=== PATIENT | male | born 2000 | race Caucasian/White ===

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

== ENCOUNTER 2023-09-09 04:05 | Emergency (ER) | payer OTHER, SELFPAY ==
[2023-09-09] VITALS (9 sets, daily range): BP systolic 118–130; BP diastolic 63–68; PULSE 62–108; RESP 14–18; TEMP 36.3–37.1; O2SAT 96–100; BMI 32.6
--- NOTE | 2023-09-09 04:31 | MHC.EDTECH ---
Patient change into behavioral hospital attire All belongings ED pod Locker 4 Plan of care ongoing
--- NOTE | 2023-09-09 04:35 | ECG_ITS ---
Test Reason : ETOH Blood Pressure : / mmHG Vent. Rate : 092 BPM Atrial Rate : 092 BPM P-R Int : 162 ms QRS Dur : 102 ms QT Int : 350 ms P-R-T Axes : 037 035 022 degrees QTc Int : 432 ms Normal sinus rhythm Nonspecific T wave abnormality Abnormal ECG No previous ECGs available Referred By: Generic ED Physician Electronically Signed By:TABITHA GRAHAM MD
[2023-09-09 04:54] LABS: MANUAL DIFF FLAG NO
[2023-09-09 04:55] LABS: Basophils Percent Auto 0.4 % (0-2); Eosinophils Absolute Auto 0.1 X10*3/uL (0.0-0.4); Eosinophils Percent Auto 1.2 % (0-4); Hematocrit 46.7 % (42.0-52.0); Hemoglobin 16.4 g/dl (14.0-18.0); Imm Gran Abs Auto 0.04 X10*3/uL (0.00-0.03); Imm Gran Pct Auto 0.4 % (0.0-0.4); Lymphocytes Absolute Auto 3.9 X10*3/uL (1.2-4.9); Lymphocytes Percent Auto 35.4 % (20-40); Mean Corpuscular HGB Conc 35.1 g/dl (31.0-36.0); Mean Corpuscular Hemoglobin 29.6 pg (27.0-33.0); Mean Corpuscular Volume 84.3 fL (80.0-98.0); Mean Platelet Volume 9.1 fL (9.4-12.4); Monocytes Absolute Auto 0.7 X10*3/uL (0.1-1.2); Monocytes Percent Auto 6.4 % (2-11); Neutrophils Absolute Auto 6.1 x10*3/uL (2.0-8.3); Neutrophils Percent Auto 56.2 % (45-73); Platelet Count 327 X10*3/uL (160-400); Red Blood Count 5.54 X10*6/uL (4.60-5.80); Red Cell Distribution Width 13.4 % (11.0-16.0); White Blood Count 10.9 X10*3/uL (4.8-10.8)
--- NOTE | 2023-09-09 05:51 | MHC.EDTECH ---
Late Entry,this tech took over care of patient at 0500AM, patient came out of the pod placed on the coach tour driver,vitals taken, Patient is agitated security present at bedside.
[2023-09-09 05:54] LABS: Appearance Urine Clear; Color Urine Yellow; Glucose Urine UA Negative (Negative); Leukocyte Esterase Urine Negative (Negative); Nitrite Urine Negative (Negative); PH 6.5 (5.0-9.0); Urine Blood Negative (Negative); Urine Ketones Negative (Negative); Urine Protein Negative (Neg-Trace)
--- NOTE | 2023-09-09 05:54 | MHC.EDTECH ---
Patient was given an ice cream,patient agitated and swearing, re directable ambulated to bathroom with a steady gait,security present,urine sample obtained and sent to lab.
--- NOTE | 2023-09-09 05:55 | PC.NURSE ---
Poison control contacted- supportive care recommended as PT is a/o, and drug use likely habitual. Recommend checking Tylenol and salicylates levels to ensure w/in normal range, and care team consult due to SI
--- NOTE | 2023-09-09 06:16 | MHC.EDTECH ---
Patient is swearing, agitated,and throwing his blankets stated I want to pulling millicent off Security at bedside patient is redirectable
[2023-09-09] MEDS: Nicotine Polacrilex 2 MG GUM BUCCAL ×2 (06:31→16:31)
--- NOTE | 2023-09-09 07:09 | ED.PSYCH ---
HPI - Psych General Chief Complaint: ETOH/Substance Use Stated Complaint: drug use Time Seen by Provider: 09/09/23 07:04 Source: patient and EMS Mode of arrival: EMS Limitations: no limitations History of Present Illness HPI Narrative: 23-year-old male presents emergency department from home. Patient states he relapsed on alcohol and wants to kill himself patient was placed in the Section by police he had been drinking at midnight and also used oxycodone and Xanax. Patient denies SI and is just sitting he wants to go home patient denies any complaints at this time. MD complaint: suicidal ideation, feels depressed and anxiety Related Data Home Medications ?Medication ?Instructions ?Recorded ?Confirmed No Known Home Meds 09/09/23 09/09/23 Allergies Allergy/AdvReac Type Severity Reaction Status Date / Time fluoxetine [From PROZAC] Allergy Intermediate HIVES Verified 09/09/23 05:41 citalopram [From Celexa] Allergy Hives Verified 09/09/23 04:34 dapoxetine Allergy Hives Verified 09/09/23 05:41 escitalopram [From Lexapro] Allergy Hives Verified 09/09/23 04:34 fluvoxamine Allergy Hives Verified 09/09/23 05:41 paroxetine Allergy Hives Verified 09/09/23 05:41 sertraline Allergy Hives Verified 09/09/23 05:41 Review of Systems Review of Systems: Review of systems: General: Patient denies any fever chills recent illness or falls Musculoskeletal: Denies back pain or body aches or other injuries HEENT: denies headache, runny nose, ear pain Respiratory: denies shortness of breath, cough Cardiovascular: no chest pain or palpitations : denies dysuria, frequency Abdomen: no nausea vomiting denies abdominal pain Extremities: no swelling, no pain Skin: no diaphoresis Yes all other systems are reviewed and are negative [facility] Social History Social History (System 03/20/23 @ 12:58 by Alethea Barajas) Alcohol intake: current Alcohol intake frequency: 3 or more drinks per day Patient Tobacco Use Status: Tobacco use Unknown Use of substances other than those prescribed or required for medical reasons: Yes Substance Use Type: Opiates, Painkillers and Prescription Drugs Advance Directives: No Advance Directives Information Provided: No Physical Exam Vital Signs: Vital Signs: Last Vital Signs Temp 97.4 F 04/07/24 06:22 Pulse 98 09/09/23 06:22 Resp 16 09/09/23 06:22 BP 118/63 09/09/23 06:22 Pulse Ox 96 09/09/23 06:22 O2 Del Method Room Air 09/09/23 06:22 BMI result Body Mass Index 32.6 General: Well-appearing well-nourished in no signs of distress somnolent but arousable HEENT: Normocephalic atraumatic Neck: No signs of JVD, no masses no tenderness or lymphadenopathy Cardiovascular: Regular rate and rhythm Respiratory: Clear to auscultation bilaterally Abdomen: Soft nontender no masses Extremities: Normal pedal pulses no signs of edema Skin: Dry warm no rashes Back: No tenderness full ROM Course Reevaluation(s) Reevaluation #1: Patient cleared early in the day did get agitated but unfortunately we don't have any providers to access the patient today. Will stay here for evaluation in the morning. Medications Administered Discontinued Medications Generic Name Dose Route Start Last Admin Trade Name Shahram PRN Reason Stop Dose Admin Nicotine Polacrilex 2 mg 09/09/23 06:11 09/09/23 06:31 Nicotine Polacrilex 2 Mg Gum BUCCAL 09/09/23 06:12 2 mg ONCE ONE Administration Quetiapine Fumarate 100 mg 09/09/23 07:51 09/09/23 07:55 Quetiapine Fumarate 100 Mg Tablet PO 09/09/23 07:52 100 mg ONCE ONE Administration Medical Decision Making Medical Decision Making [facility] Narrative: I will watch here till he is clinically sober waiting for the alkaline come down Differential Diagnosis Differential Diagnoses: The differential diagnosis associated with the presentation includes Drug overdose suicide ideation Admission/Observation Consideration of admission/observation: Escalation of care including admission/observation considered Consult Healthcare Provider Management of the patient was discussed with: Behavioral Health Provider Lab Data [facility] Lab Attestation statement: I reviewed the patient's lab results. 09/09/23 04:46 09/09/23 04:46 Labs: Lab Results 09/09/23 09/09/23 Range/Units 04:46 05:46 WBC 10.9 H (4.8-10.8) X10*3/uL RBC 5.54 (4.60-5.80) X10*6/uL Hgb 16.4 (14.0-18.0) g/dl Hct 46.7 (42.0-52.0) % MCV 84.3 (80.0-98.0) fL MCH 29.6 (27.0-33.0) pg MCHC 35.1 (31.0-36.0) g/dl RDW 13.4 (11.0-16.0) % Plt Count 327 (160-400) X10*3/uL MPV 9.1 L (9.4-12.4) fL Immature Gran % (Auto) 0.4 (0.0-0.4) % Neut % (Auto) 56.2 (45-73) % Lymph % (Auto) 35.4 (20-40) % [place] % (Auto) 6.4 (2-11) % Eos % (Auto) 1.2 (0-4) % Baso % (Auto) 0.4 (0-2) % Lymph # (Auto) 3.9 (1.2-4.9) X10*3/uL [place] # (Auto) 0.7 (0.1-1.2) X10*3/uL Eos # (Auto) 0.1 (0.0-0.4) X10*3/uL Baso # (Auto) 0.0 (0.0-0.2) X10*3/uL Abs Immat Gran (auto) 0.04 H (0.00-0.03) X10*3/uL Absolute Neuts (auto) 6.1 (2.0-8.3) x10*3/uL Absolute Nucleated RBC 0.000 (0.0-0.012) X10*3/uL Nucleated RBC % (auto) 0.0 (0.0-0.2) /100WBC Sodium 144 (135-145) mmol/L Potassium 4.1 (3.3-5.1) mmol/L Chloride 106 (96-108) mmol/L Carbon Dioxide 18 L (22-29) mmol/L Anion Gap 20 (12-20) BUN 6 L (9-16) mg/dL Creatinine 0.60 (0.5-1.4) mg/dL Estim Creat Clear Calc 248.4 Estimated GFR > 60 Random Glucose 89 (60-115) mg/dL Calcium 9.7 D (8.4-10.2) mg/dL Total Bilirubin 0.5 (0.0-1.0) mg/dL AST 23 (5-37) U/L ALT 29 (0-40) U/L Alkaline Phosphatase 82 (39-117) U/L Total Protein 7.6 (6.5-8.0) g/dL Albumin 4.9 (3.5-5.0) g/dL Urine Color Yellow Urine Appearance Clear Urine pH 6.5 (5.0-9.0) Ur Specific [place] 1.010 (1.005-1.025) Urine Protein Negative (Neg-Trace) mg/dL Urine Glucose (UA) Negative (Negative) mg/dL Urine Ketones Negative (Negative) mg/dL Urine Blood Negative (Negative) Urine Nitrite Negative (Negative) Ur Leukocyte Esterase Negative (Negative) Salicylates < 5.0 L (15-30) mg/dL Urine Opiates Screen NOT DETECTED (Not Detect) Urine Fentanyl Screen Not Detected (Not Detect) Acetaminophen < 5 (<30) mcg/mL Ur Barbiturates Screen NOT DETECTED (Not Detect) Ur Phencyclidine Scrn NOT DETECTED (Not Detect) Ur Amphetamines Screen NOT DETECTED (Not Detect) U Benzodiazepines Scrn POSITIVE H (Not Detect) Urine Cocaine Screen NOT DETECTED (Not Detect) U Marijuana (THC) Screen POSITIVE H (Not Detect) Ethyl Alcohol 50 mg/dL Discharge Plan Discharge Clinical Impression: Alcoholic intoxication, Polysubstance abuse Patient Disposition: Still a Patient Instructions: Abuse of Alcohol (DC), Polysubstance Abuse (ED) Additional Instructions: You were seen in the emergency department after making statements about hurting herself drinking alcohol and abusing multiple drugs. Please call follow-up with your doctor you had labs and re-evaluate I crisis and a physician. If you have any other concerns please return to the emergency department. Prescriptions: No Action No Known Home Meds Print Language: Nicaraguan
--- OUTSIDE RECORDS SUMMARY | 2023-09-09 07:18 | XMS_ITS | Continuity of Care Document ---
Author Organization [facility] ter Address [address] [place] [id number]- Care Team Providers Care Network Cable Installer Name Role Phone Corey Leija MD Primary Care Physician Encounter [facility] [place] Date(s): 12/01/19 - 12/02/[address] [id number]- [facility] Encounter Diagnosis Overdose, drug(Final) - 12/02/19 Substance abuse(Final) - 12/02/19 Overdose, drug(Final) - 12/02/19 Substance abuse(Final) - 12/02/19 Discharge Disposition: A-D/C Home Attending Physician: Merissa Aguirre MD Admitting Physician: Merissa Aguirre MD Referring Physician: Not on Staff, Referring MD Allergies, Adverse Reactions, Alerts Substance Reaction Severity Status NKA Active Medications naloxone 4 mg/0.1 mL nasal spray 1 sprays, Naris, Left, Once, PRN Other respiratory depression, # 1 kit, 0 Refills, Soft Stop, 12/02/19 10:14:00 EDT Start Date: 12/02/19 Status: Ordered Vital Signs Most recent to oldest [Reference Range]: 1 2 3 Height 180 cm (12/02/19 11:52 AM) 180 cm (12/02/19 9:25 AM) 180 cm (12/02/19 3:36 AM) Weight 124.9 kg (12/02/19 11:52 AM) 124.9 kg (12/02/19 9:25 AM) 124.9 kg (12/02/19 3:36 AM) Oxygen Saturation [94-100 %] 100 % (12/02/19 11:52 AM) 97 % (12/02/19 9:25 AM) 98 % (12/02/19 6:07 AM) Pulse Rate [55-90 bpm] 78 bpm (12/02/19 11:52 AM) 84 bpm (12/02/19 9:25 AM) 60 bpm (12/02/19 6:07 AM) Body Mass Index [18.5-24.99] 38.55 *>HHI* (12/02/19 11:52 AM) 38.55 *>HHI* (12/02/19 9:25 AM) 38.55 *>HHI* (12/02/19 3:36 AM) Blood Pressure [80-130/50-80 mm Hg] 128/80mm Hg (12/02/19 11:52 AM) 122/66mm Hg (12/02/19 9:25 AM) 128/71mm Hg (12/02/19 3:36 AM) Respiratory Rate [16-30 br/min] 18 br/min (12/02/19 11:52 AM) 18 br/min (12/02/19 9:25 AM) 18 br/min (12/02/19 6:07 AM) Temperature [96.8-100.4 DegF] 98.1 DegF (12/02/19 11:52 AM) 97.5 DegF (12/02/19 9:25 AM) 98.5 DegF (12/02/19 3:36 AM) Mode of Delivery (Oxygen) Room air (12/02/19 9:25 AM) Room air (12/02/19 6:07 AM) Room air (12/02/19 3:36 AM) Blood pressure sites Arm, left (12/02/19 9:25 AM) Arm, left (12/02/19 3:36 AM) Arm, right (12/02/19 1:45 AM) Temperature Route Oral (12/02/19 11:52 AM) Oral (12/02/19 9:25 AM) Oral (12/02/19 3:36 AM) Dry Weight 124.9 kg (12/02/19 11:52 AM) 124.9 kg (12/02/19 9:25 AM) 124.9 kg (12/02/19 3:36 AM) Weight Obtained Via Standing scale (12/02/19 12:05 AM) Dry Weight Obtained Via Standing scale (12/02/19 12:05 AM) Social History Social History Type Response Smoking Status Never (less than 100 in lifetime) entered on: 12/02/19 Sex
--- OUTSIDE RECORDS SUMMARY | 2023-09-09 07:18 | XMS_ITS | Continuity of Care Document ---
Author Organization [facility] ter Address [address] [place] [id number]- Care Team Providers Care Cvt Rn Name Role Phone Not on Staff, PCP Primary Care Physician Unavail able [place] [facility] [place]): [place] - 06/02/[address] [address]- Discharge Disposition: A-D/C Home Attending Physician: Carlitos Stanford MD Admitting Physician: Carlitos Stanford MD Referring Physician: Not on Staff, Referring MD Allergies, Adverse Reactions, Alerts No Known Allergies Medications naloxone 4 mg/0.1 mL nasal spray 1 sprays, Naris, Left, Once, PRN Other respiratory depression, # 1 kit, 0 Refills, Soft Stop, 12/02/19 10:14:00 EDT Start Date: 12/02/19 Status: Ordered Results Orders for Microbiology Reports Name Date Urine Culture (URINE CULTURE) 05/31/23 Microbiology Reports TEST:Urine Culture STATUS:Auth (Verified) BODY SITE: SOURCE:URINE COLLECTED DATE/TIME:05/31/23 4:15 PM Urine Culture SPECIMEN DESCRIPTION : URINE SPECIAL REQUESTS : NONE CULTURE : NO GROWTH REPORT STATUS : FINAL 06/01/2023 Vital Signs Most recent to oldest [Reference Range]: 1 2 3 Height 180 cm (06/02/23 8:41 AM) 180 cm (06/01/23 10:56 AM) 180 cm (05/31/23 8:07 PM) Oxygen Saturation [94-100 %] 99 % (06/02/23 8:41 AM) 100 % (06/01/23 8:21 PM) 100 % (06/01/23 10:56 AM) Pulse Rate [55-90 bpm] 63 bpm (06/02/23 8:41 AM) 84 bpm (06/01/23 8:27 PM) 84 bpm (06/01/23 8:21 PM) Blood Pressure [90-138/55-84 mm Hg] 121/57mm Hg (06/02/23 8:41 AM) 125/66mm Hg (06/01/23 8:27 PM) 125/66mm Hg (06/01/23 8:21 PM) Respiratory Rate [16-30 br/min] 15 br/min *L* (06/02/23 8:41 AM) 16 br/min (06/01/23 8:27 PM) 16 br/min (06/01/23 8:21 PM) Temperature [96.8-100.4 DegF] 97.3 DegF (06/02/23 8:41 AM) 98.2 DegF (06/01/23 8:21 PM) 97.5 DegF (06/01/23 10:56 AM) Mode of Delivery (Oxygen) Room air (06/02/23 8:41 AM) Room air (06/01/23 8:21 PM) Room air (06/01/23 10:56 AM) Blood pressure sites Arm, left (06/02/23 8:41 AM) Arm, left (06/01/23 8:21 PM) Arm, right (06/01/23 10:56 AM) Temperature Route Oral (06/02/23 8:41 AM) Oral (06/01/23 8:21 PM) Oral (06/01/23 10:56 AM) Dry Weight 108.5 kg (06/02/23 8:41 AM) 108.5 kg (06/01/23 10:56 AM) 108.5 kg (05/31/23 8:07 PM) Social History Social History Type Response Smoking Status Never (less than 100 in lifetime) entered on: 12/02/19 Sex Hospital Progress note * Lio Piper RN: PERFORM, SIGN, VERIFY Event Display: Progress Note Hospital Authored Date: Patient: EUNICE TRAN Age: 23 years Sex: Male : 2000 Associated Diagnoses: None Author: Lio Piper RN Findings Narrative/Incidental Patient was acting out when this newswriter came on shift at 1900 - He was asking for medications and boasting about how eats xanax and percocet's like candy - appeared to be attempting to impress his peers and this newswriter - He continued to escalate demanding to talk with the MD - he said he should notbe here - he will not stay here and will not goto a psych untit - he said noone has any proof thatI threatened any one - He said he did not believe this newswriter and he continued to demand to talk with crisis and the MD - this newswriter asked the MD for medication and alerted the MD to his request gilda seen - eventually crisis did speak with the patient reiterating his current status - The MD alsocame and was a part of that conversation - The MD ordered Ativan 2mg PO or IM and haldol IM if the patient needed these meds as to be managed in the pod - The patient wasm given the po ativan at his request almost immediately after this newswriter had the order - He continued to seek attention from thestaff and his peers, but his peers were not tolerating it any more and they bey begag asking for medication as to go to bed and avoid the patient - when all peers went to bed, he began to increase his acting behaviors - He srceamed very loud as to be intrusive to his peers and he said I will be in the hospital through New Years Izzy - Then he yelled Im leaving right now and began to throw his shoulder into the pod doors attemptinfg to leave - Security was called and Eunice was held on his bed and IM haldol 5mg and Ativan 2mg was administered IM into his right Vastus Lateralus - the patient was asleep with in 10 minutes - The on coming MD was notified of the event and He ordered additional PRN medications as it is highly likely Eunice will not be placed until after the holiday weekend. This is because Psych facilities will not take a patient for 24 hours after a chemical restraint has occured and they wiil no longer have beds after tomorrow going into the holiday weekend. The patient was educated about all of this before he chose to attempt to leave the pod. Will remain in [place] as asection 12A as he waits for placement in an inpatient facility.. Consult note * Nallely Dave MD: PERFORM Event Display: Consultation Note Authored Date: Patient: ??EUNICE TRAN ? Age:??23 Years?Sex:??Male?:??2000?? 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 ?? Per records, ??He presents to [facility] ER today after he was picked up by [place]??police and [facility]??from a [facility] parking lot. [place] police were??alerted??that Eunice had guns in the??car, and had??ideation [facility] and then himself or go and kill his grandparents and then himself. When the police arrived??to the scene Eunice was inside [facility],??there were guns on the back seat.??Although the guns??look real, they are NOT real guns but instead air guns. Emma was transported to [facility] ER. ? Psychiatric hx: He denies previous inpatient admissions. He reports he was supposed to go to the hospital a few times but he got out of it a few times. Eunice previously had outpatient supports. Eunice reports he's been tried on medications before but doesn't like them because of sexual side effects. He reports 1 medication gave him a 12 hour erection. ?? Eunice has a history of poly substance use including opiates in pill form, cocaine, alcohol, codeine, and inhalant use. Eunice denies being an addict. His tox screen is positive for cocaine, marijuana, and benzos. He reports he last used a few days ago. In 2019 he had an overdose on oxycodone. ? Group Detail Date Value w/Units Flags Normal Range Normal Reference Text Comment Ind TOXICOLOGY/TDM Barbiturate Screen, Urine 05/31/2023 16:15:00 EST NONE DETECTED? Y TOXICOLOGY/TDM Cannabinoid Screen, Urine 05/31/2023 16:15:00 EST POSITIVE?? ABN ? Y TOXICOLOGY/TDM Cocaine Metabolite Screen, Urine 05/31/2023 16:15:00 EST POSITIVE?? ABN ? Y TOXICOLOGY/TDM Benzodiazepine Screen, Urine 05/31/2023 16:15:00 EST POSITIVE?? ABN ? Y TOXICOLOGY/TDM Amphetamine Screen, Urine 05/31/2023 16:15:00 EST NONE DETECTED? Y TOXICOLOGY/TDM Opiate Screen, Urine 05/31/2023 16:15:00 EST NONE DETECTED? Y UA/URINALYSIS Appear/Color, Urine 05/31/2023 16:15:00 EST COLORLESS? Y UA/URINALYSIS Specific [place], Urine 05/31/2023 16:15:00 EST 1.007? 1.002-1.030 ? UA/URINALYSIS pH, Urine 05/31/2023 16:15:00 EST 7.0? 5.0-8.0 ? UA/URINALYSIS Albumin, Urine 05/31/2023 16:15:00 EST NEGATIVE? UA/URINALYSIS Glucose, Urine 05/31/2023 16:15:00 EST NEGATIVE? UA/URINALYSIS Ketones, Urine 05/31/2023 16:15:00 EST NEGATIVE? UA/URINALYSIS Bilirubin, Urine 05/31/2023 16:15:00 EST NEGATIVE? UA/URINALYSIS Hemoglobin, Urine 05/31/2023 16:15:00 EST NEGATIVE? UA/URINALYSIS Nitrite, Urine 05/31/2023 16:15:00 EST NEGATIVE? UA/URINALYSIS Leukocyte, Urine 05/31/2023 16:15:00 EST NEGATIVE? UA/URINALYSIS Urobilinogen 05/31/2023 16:15:00 EST NORMAL mg/dL ? UA/URINALYSIS WBC's, Urine 05/31/2023 16:15:00 EST 1 /HPF ?? 0-5 ? UA/URINALYSIS RBC's, Urine 05/31/2023 16:15:00 EST 1 /HPF ?? 0-3 ? UA/URINALYSIS Bacteria 05/31/2023 16:15:00 EST SLIGHT HPF ABN ? UA/URINALYSIS Squamous Epith 05/31/2023 16:15:00 EST <1 /HPF ?? 0-8 ? UA/URINALYSIS Amorphous Crystals 05/31/2023 16:15:00 EST MODERATE /HPF ? UA/URINALYSIS Hold Urine Culture 05/31/2023 16:15:00 EST Testing available 48 hours from time of collection.? VIROLOGY Influenza A PCR 05/31/2023 16:11:00 EST NEGATIVE? Y VIROLOGY Influenza B PCR 05/31/2023 16:11:00 EST NEGATIVE? Y VIROLOGY RSV PCR 05/31/2023 16:11:00 EST NEGATIVE? Y VIROLOGY COVID-19 PCR Specimen Source 05/31/2023 16:11:00 EST NASAL? VIROLOGY COVID-19 PCR Result 05/31/2023 16:11:00 EST NEGATIVE? Y BLOOD COUNT & DIFF WBC 05/31/2023 15:56:00 EST 11.9 k/mm3 H 4.0-11.0 ? BLOOD COUNT & DIFF RBC 05/31/2023 15:56:00 EST 5.31 m/mm3 ?? 4.70-6.10 ? BLOOD COUNT & DIFF Hgb 05/31/2023 15:56:00 EST 15.7 Gm/dL ?? 13.7-17.1 ? BLOOD COUNT & DIFF Hct 05/31/2023 15:56:00 EST 46.4 % ?? 40.5-50.0 ? CHEM GENERAL Sodium 05/31/2023 15:56:00 EST 140 mmol/L ?? 133-145 ? CHEM GENERAL Potassium 05/31/2023 15:56:00 EST 4.2 mmol/L ?? 3.6-5.2 ? CHEM GENERAL Chloride 05/31/2023 15:56:00 EST 104 mmol/L ?? 98-107 ? CHEM GENERAL Bicarbonate Level 05/31/2023 15:56:00 EST 22 mmol/L ?? 22-29 ? CHEM GENERAL Anion Gap 05/31/2023 15:56:00 EST 14? 4-17 ? CHEM GENERAL Glucose Level 05/31/2023 15:56:00 EST 83 mg/dL ?? 70-99 ? CHEM GENERAL BUN 05/31/2023 15:56:00 EST 6 mg/dL ?? 6-20 ? CHEM GENERAL Creatinine-Blood 05/31/2023 15:56:00 EST 0.6 mg/dL L 0.7-1.2 ? CHEM GENERAL Estimated GFR Creatinine 05/31/2023 15:56:00 EST 141 ML/MIN/1.73 M2 ? Y CHEM GENERAL Calcium 05/31/2023 15:56:00 EST 9.7 mg/dL ?? 8.6-10.5 ? TOXICOLOGY/TDM Ethanol, Serum or Plasma 05/31/2023 15:56:00 EST NONE DETECTED mg/dL ? Y ? Recommendations: Dispo as per Crisis Pt is a Psychiatric Bed Search. ?? Can offer prn Vistaril 50mg TID?? Can offer prn Trazodone 50mg qhs?? Severe agitation Haldol 5mg TID PO/IM ?? Patient Care team information Care Team Personnel Name: Not on Staff, PCP Position: [facility] Physician (General Medicine) Member Role: PCP Name: *S, ED Attending Position: [facility] ED Attendings Patient Name: Carltios Stanford MD Position: [facility] ED Medicine MD Member Role: Admitting Physician Address: Address: [address] [place] [id number]- Name: Myrna Rogers RN Position: [facility] ED RN W/OE and Tasks Member Role: Patient Care Provider Care Team Related Persons Name: FLO TRANA Address: home [address] [place] [id number] Name: ÁNGEL TRAN Address: home [address] [place] [address] Name: ANISH TRAN Address: home [address] [place], [place] [id number]
--- NOTE | 2023-09-09 07:35 | PC.NURSE ---
Patient brought over from main ER, report received from NADEGE chavira. Patient reports that he was ripped out of his house last night by police . He reports that he was planning on going to detox tomorrow (Saturday 09/09) but now no longer wants to go. He is requesting to leave. Patient educated on process of being seen here in the pod. Pt is alert and oriented x4, respirations even and unlabored, no apparent distress at this time. Pending CARE zhang
[2023-09-09 07:55] LABS: Anion Gap 20 (12-20); Blood Urea Nitrogen 6 mg/dL (9-16); Carbon Dioxide 18 mmol/L (22-29); Chloride 106 mmol/L (96-108); Creatinine Clr Calc Pharmacy 248.4; Estimated Glomerular Filt Rate > 60; Potassium 4.1 mmol/L (3.3-5.1)
[2023-09-09] MEDS: QUEtiapine Fumarate 100 MG TABLET PO (07:55)
[2023-09-09 07:56] LABS: Bilirubin Total 0.5 mg/dL (0.0-1.0); Calcium 9.7 mg/dL (8.4-10.2); Glucose Random 89 mg/dL (60-115)
[2023-09-09 07:57] LABS: Alanine Aminotransferase 29 U/L (0-40); Albumin Level 4.9 g/dL (3.5-5.0); Alkaline Phosphatase 82 U/L (39-117); Aspartate Amino Transferase 23 U/L (5-37); Ethanol 50 mg/dL; Total Protein 7.6 g/dL (6.5-8.0)
[2023-09-09 07:58] LABS: Acetaminophen LAB < 5 mcg/mL (<30)
[2023-09-09 07:59] LABS: Salicylate < 5.0 mg/dL (15-30)
--- NOTE | 2023-09-09 07:59 | PC.NURSE ---
Patient verbally escalating, unwilling to particpate in conversation without interrupting this RN. Patient requesting something for medication. Seroquel administered per AUG.
[2023-09-09 08:00] LABS: Sodium 144 mmol/L (135-145)
[2023-09-09 09:11] LABS: Amphetamine Screen Urine NOT DETECTED (Not Detect); Barbiturates, Urine NOT DETECTED (Not Detect); Benzodiazepines Screen Urine POSITIVE (Not Detect); Opiate Screen Urine NOT DETECTED (Not Detect); Phencyclidine Screen Urine NOT DETECTED (Not Detect)
[2023-09-09 09:12] LABS: Cannabinoid Screen Urine POSITIVE (Not Detect); Cocaine Screen Urine NOT DETECTED (Not Detect); Fentanyl, urine Not Detected (Not Detect)
--- NOTE | 2023-09-09 11:27 | PC.NURSE ---
Pt woke up from short nap, ambulating with unsteady gait around BH pod, mumbling. Patient reported to this RN that he shit himself . This RN attempted to guide patient to bathroom, patient stumbling around, attempted to enter other patient's rooms. This RN got patient to the bathroom and on the toilet. Patient proceeded to wipe still from his leg onto his chest and arms. This RN attempted to verbally redirect patient with minimal success. Patient was guided into the shower where patient was able to shower independently. Patient got dressed and ambulated once again with an unsteady gait back to bedroom. patient now sleeping, respirations even and unlabored, no apparent distress
--- NOTE | 2023-09-09 15:38 | PC.NURSE ---
patient refusing vital signs, and CIWA assessment. Currently speaking with CARE team
--- NOTE | 2023-09-09 15:51 | PC.NURSE ---
Patient on phone with family, occasionally escalating in volume
[2023-09-09] MEDS: hydrOXYzine HCL 50 MG TABLET PO (16:16)
[2023-09-09] MEDS: diphenhydrAMINE HCL 50 MG/ML VIAL IM (16:45)
[2023-09-09] MEDS: Haloperidol Lactate 5 MG/ML VIAL IM (16:45)
[2023-09-09] MEDS: LORazepam 2 MG/ML VIAL IM (16:45)
[2023-09-09] MEDS: OLANZapine 10 MG VIAL IM (17:19)
[2023-09-09] MEDS: Ziprasidone Mesylate 20 MG VIAL IM (17:19)
--- NOTE | 2023-09-09 17:44 | PC.NURSE ---
At approximately 1630, patient began escalating in behavior, yelling, threatening to break out of here . Stating what's gonna happen if I break out, you gonna elba me . This RN educated patient regarding Section 12 status, patient increasingly agitated. Mckenzie from CARE team had previously told patient that he would have to stay the night and he voiced his opinion on how he did not like that. Patient began pacing back and forth around BH pod, yelling at this RN, calling staff names such as bitch, dumbass and useless . After requesting patient return to his room, patient asked for IM injections to help him calm down I need the shot to help me calm down . ordered benadryl, haldol and ativan. Patient took medications willingly from this RN at 1645, no physical hold required. Patient sat on bed for 1-2 minutes but then started pacing around BH pod once again, yelling at staff, threatening to leave, requesting to talk to CARE team. This RN informed patient that CARE team had already made their decision on care and that the decision was made to keep on a section 12. Patient began hitting chair, threatening BH pod staff and slamming BH pod phone. This RN, CRISTIAN Gonzalez and NADEGE Wills attempted to redirect patient back to room. Patient continuing to escalate in behavior. Security called to bedside. Patient continued to be verbally assaultive, making fun of security staff calling them names. Patient then threw cup of water at the door. Pt unwilling to be verbally redirected. Patient ordering this RN to get him more medications. Additional medication requested by this RN, MD Baer ordered Geodon and Zyprexa which was administered at 1719, again without physical hold required. Patient continued to be verbally aggressive towards staff but eventually was able to self redirect back to bed and is now sleeping, respirations even and unlabored, no apparent distress
--- NOTE | 2023-09-09 19:21 | PC.NURSE ---
patient appears to remain at rest at present respirations are even and unlabored patient appears in no distress.
--- NOTE | 2023-09-10 04:42 | PC.NURSE ---
client awakens and blames staff for allowing him to miss dinner, uses vulgar language and generally exhibits irritable behavior. get me the fuck out of here to the air...
[2023-09-10 04:54] VITALS: BP 133/69; PULSE 90; RESP 17; TEMP 36.9; O2SAT 99
[2023-09-10] MEDS: diphenhydrAMINE HCL 25 MG CAPSULE 50 MG PO (05:04)
--- NOTE | 2023-09-10 07:28 | PC.NURSE ---
Assumed care of patient at 0645, patient appears to be sleeping, respirations even and unlabored, no apparent distress noted at this time. Continue plan of care reevaluation in the am
--- NOTE | 2023-09-10 09:16 | MHC.CARE ---
CARE Team received a call from Pts grandfather, Section 35 warrant was issued. 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
[2023-09-10] MEDS: LORazepam 1 MG TABLET 2 MG PO (09:35)
[2023-09-10 12:33] VITALS: BP 133/69; PULSE 90; RESP 17; TEMP 36.9; O2SAT 99
--- NOTE | 2023-09-10 12:41 | PC.NURSE ---
Patient escorted out of pod by this RN and security to PD who are taking patient for Section 35. Patient mainly cooperative, occasionally verbally escalating but discharge otherwise successful with no issues
== END 2023-09-10 12:45 | disposition home or self-care (01) ==
PROVIDERS: Emergency Provider Student in an Organized Health Care Education/Training Program
DX: F10.129 Alcohol abuse with intoxication, unspecified (principal); Y90.2 Blood alcohol level of 40-59 mg/100 ml; F19.10 Other psychoactive substance abuse, uncomplicated; Z88.8 Allergy status to other drugs, medicaments and biological substances
CPT/HCPCS: 36415; 80053; 80143; 80179; 80307; 81003; 85025; 93005; 96372; 99285; J1200; J1630; J2060; J2359; J3486; S9485

== ENCOUNTER → 2023-09-09 04:35 | Outpatient (BNV) | payer OTHER, SELFPAY | PROVIDERS: Emergency Provider Student in an Organized Health Care Education/Training Program; Visit Provider Internal Medicine Cardiovascular Disease | DX: I42.6 Alcoholic cardiomyopathy (principal) | CPT/HCPCS: 93010 ==